=== PATIENT | female | born 1975 | race Caucasian/White ===

== ENCOUNTER → 2020-06-09 | Outpatient (CLI) | payer OTHER | LOC: NUC 07:04 | PROVIDERS: ATTEND Internal Medicine | DX: E04.2 Nontoxic multinodular goiter (principal); E21.3 Hyperparathyroidism, unspecified ==

== ENCOUNTER → 2020-07-28 | Day surgery (SDC) | payer OTHER ==
[~2020-07-28] VITALS: Ht 162.6 cm; Wt 81.6 kg
[~2020-07-28] MED LIST: ATORVASTATIN CA20 MG PO; GLYXAMBI 25 MG1 EACH PO; HYDROCODON-ACE1 EAC7 PO; LISINOPRIL10 MG PO; METFORMIN PO; NEXIUM40 MG PO; VASCEPA1 GM PO; VITAMIN D21250 MC1 PO
== END | disposition home or self-care (01) ==
LOC: OR 13:05 → NUC 07-30 12:12 → OR 07-30 12:42 → EDSTATUS 07-30 13:48 → OR 07-30 13:52 → EDSTATUS 07-30 13:54 → OR 07-30 14:18
PROVIDERS: ATTEND Surgery
DX: Z01.812 Encounter for preprocedural laboratory examination (principal); Z20.828 Contact with and (suspected) exposure to other viral communicable diseases; E21.3 Hyperparathyroidism, unspecified; I10 Essential (primary) hypertension; E11.9 Type 2 diabetes mellitus without complications; K21.9 Gastro-esophageal reflux disease without esophagitis; Z98.890 Other specified postprocedural states; Z79.899 Other long term (current) drug therapy

== ENCOUNTER 2020-07-30 06:06 | Day surgery (SDC) | payer OTHER ==
[2020-07-30] VITALS (11 sets, daily range): BP systolic 109–143; BP diastolic 64–86
[~2020-07-30] VITALS: Ht 160 cm; Wt 88.9 kg
[~2020-07-30 06:06] MED LIST changes: -HYDROCODON-ACE1 EAC7 PO
--- NOTE | 2020-07-30 07:37 | EKG ---
[facility] [place] [address] ELECTROCARDIOGRAM REPORT Name: CASPER GRADY Room #: 150-3 [facility] M.R.#: [id number] Admission: 07/30/20 Attend Phys: Chad Echavarria MD Discharge: Date of : 79 Report #: [id number] THIS REPORT FOR: cc: Nadiya Kemp Christine L DO Santiago, Patrick MD [facility] THIS REPORT FOR: //name// [facility] Test Date: 2020-07-30 Test Time: 06:40:04 Pat Name: CASPER GRADY Department: Room: 150 3 Gender: F Oxygen Therapy Teacher: TRANG : 1975 Requested By: Chad Echavarria Order Number: [id number] MD: Bridger Morejon Measurements Intervals [place] Rate: 51 P: 29 TX: 191 QRS: -9 QRSD: 98 T: 20 QT: 445 QTc: 410 Interpretive Statements Sinus rhythm J-Point elev, probable normal early repol pattern Baseline wander in lead(s) II No previous ECG available for comparison Electronically Signed On 07-30-2020 7:37:32 CDT by Bridger Morejon [email or web address] <ELECTRONICALLY SIGNED> By: Bridger Morejon MD, FACC 07/30/20 0737 Bridger Morejon MD, [facility] /EPI
--- NOTE | 2020-07-30 13:15 | H ---
[facility] [place] [address] HISTORY AND PHYSICAL Name: CASPER GRADY Room #: 150-3 [facility] M.R.#: [id number] Admission: 07/30/20 Attend Phys: Chad Echavarria MD Discharge: Date of : 79 Report #: [id number] THIS REPORT FOR: cc: Nadiya Kemp,Nadiya Godinez,Chad Wade MD ~ CC: Frieda Echavarria ADMISSION HISTORY AND PHYSICAL PATIENT OF: Dr. She Muller and Dr. Frieda Valdez CHIEF COMPLAINT: "I have a history of high calcium in my blood." HISTORY OF PRESENT ILLNESS: The patient is a 44-year-old white female, who was found on routine blood work to have an elevated calcium level in 11/2019. This was repeated in April and her calcium and parathyroid hormone assays were elevated. Primary care physician recommended an endocrine evaluation and she was seen by Dr. Frieda Valdez. She has no history of any renal lithiasis, pancreatitis, frequent bony fractures, chronic abdominal pain, nausea or vomiting. She does admit to some mental fogginess and depression, but she thought this was related to currently going through a divorce. No family history of any endocrine tumors. Though, her mother has a history of total thyroidectomy for Deep's thyroiditis. Dr. Valdez ordered a sestamibi scan, which confirmed the presence of a right parathyroid abnormal gland. Ultrasound then confirmed the presence of an oval well circumscribed hypoechoic mass posterior to the right lobe of the thyroid, highly suggestive of a parathyroid adenoma. She was then seen in surgical consultation and I recommended neck exploration and parathyroidectomy agreed to proceeding with surgery. PAST MEDICAL HISTORY: Diabetes, hypertension, gastroesophageal reflux disease, hypercholesterolemia. PAST SURGICAL HISTORY: ACL, PCL, MCL meniscus repair in 1998; hysterectomy in 2012. MEDICATIONS: Vascepa 1 gram 2 capsules with meals twice a day, metformin 1000 mg p.o. every day, Glyxambi 25/5 mg tablet 1 tablet p.o. every day, Nexium 20 mg p.o. every day, atorvastatin 20 mg p.o. every day, lisinopril 20 mg p.o. every day. ALLERGIES: No known drug allergies. [address] [address] HISTORY AND PHYSICAL Name: CASPER GRADY Room #: 150-3 [facility].#: [id number] Admission: 07/30/20 Attend Phys: Chad Echavarria MD Discharge: Date of : 79 Report #: [id number] FAMILY HISTORY: Mother with history of diabetes. Father and grandmother with history of liver carcinoma. SOCIAL HISTORY: The patient is legally and going through a divorce, does not smoke, drinks alcohol occasionally. REVIEW OF SYSTEMS: Pertinent positives as above. Full review of systems, otherwise, negative. PHYSICAL EXAMINATION: GENERAL: This is a well-developed, well-nourished white female, in no acute distress. VITAL SIGNS: Stable. She is afebrile. Height 64 inches, weight is 200 pounds, BMI of 34.4. HEENT: Sclerae are nonicteric. Mucous membranes are moist and pink. NECK: No adenopathy, no thyromegaly. No palpable neck masses. LUNGS: Clear to auscultation bilaterally. Normal excursion. CARDIOVASCULAR: Regular rate and rhythm. No murmurs, S3 or S4. Normal PMI. ABDOMEN: Soft, flat and nontender. No palpable masses, no organomegaly, no hernias. EXTREMITIES: No clubbing, cyanosis or edema. NEUROLOGIC: Intact with a clear mental status. No focal motor or sensory deficits. IMPRESSION: A 44-year-old white female with hypercalcemia, hyperparathyroidism, probable right parathyroid adenoma. I fully discussed with the patient the diagnosis, prognosis, and treatment options. She states she understands and wished to proceed with surgery. PLAN: We will perform a neck exploration with parathyroidectomy with preoperative sestamibi injection and intraoperative turbo PTH assay under general endotracheal anesthesia, 23-hour observation admission to [facility]. The procedure and its risks, benefits and possible complications including possible negative neck exploration were fully discussed with the patient. She states she understands and agrees to proposed surgery. <ELECTRONICALLY SIGNED> By: Chad Echavarria MD 07/30/20 1315 1122 1153 Chad Echavarria MD /nt
[2020-07-30] MEDS ORDERED: HYDROCODON-ACE1 EAC7 PO (13:28)
--- NOTE | 2020-07-30 16:36 | NUR ---
Admitted patient to the floor from PACU at 1425. Pt. was calm and cooperative. Patient does not complaint of pain currently. Admission completed with patient.
[2020-07-31 00:22] VITALS: BP 124/77
[2020-07-31 06:40] LABS: CREATININE 0.9 mg/dL (0.6-1.0)
[2020-07-31 07:35] VITALS: BP 120/70
--- NOTE | 2020-07-31 08:21 | NUR ---
ASSESSMENT: CM REVIEWED CHART AND SPOKE WITH PATIENT. PT IS S/P PARATHYROIDECTOMY. PT REPORTS LIVING WITH HER EX- IN A HOUSE. PT REPORTS ONE STEP TO ENTER AND NO STEPS ONCE INSIDE. PT REPORTS SHE IS FULLY INDEPENDENT WITH ADLS AND AMBULATION. CM DISCUSSED ROLE. PT REPORTS HAVING NO NEEDS FROM CM.
--- NOTE | 2020-07-31 08:46 | NUR ---
ASSESSED AT START OF SHIFT. PT A&OX4 C/O PAIN 03/26 MANAGED WITH PO HYDROCODONE. POSTOP DRESSING C/D/I. IV INTACT AND FLUIDS INFUSING. PT UP AD MELISSA TO THE BATHROOM. TUMS GIVEN FOR SORE THROAT. CALL LIGHT AT REACH.
--- NOTE | 2020-07-31 08:48 | O ---
[facility] [place] [address] OPERATIVE REPORT Name: CASPER GRADY Room #: 439-P [facility]..#: [id number] Admission: 07/30/20 Attend Phys: Chad Echavarria MD Discharge: Date of : 79 Report #: [id number] THIS REPORT FOR: cc: Nadiya Kemp,Nadiya Godinez,Chad Wade MD ~ CC: Frieda Echavarria DATE OF SERVICE: 07/30/[address] Frieda Valdez and Dr. Nadiya Kemp. PREOPERATIVE DIAGNOSES: Hypercalcemia, hyperparathyroidism, parathyroid adenoma. POSTOPERATIVE DIAGNOSES: Hypercalcemia, hyperparathyroidism, parathyroid adenoma. PROCEDURE: Neck exploration with preoperative sestamibi injection and intraoperative turbo PTH and right pole parathyroidectomy with pathological consultation for frozen section. SURGEON: Chad Echavarria M.D. ANESTHESIA: General. DESCRIPTION OF PROCEDURE: The patient underwent a preoperative sestamibi injection in the Nuclear Medicine Department. Preoperative intact PTH was drawn and was 167. The patient was then brought to the operating room and placed on the operative table in the supine position. Sequential compression devices were in place for DVT prophylaxis. There was no indication for preoperative antibiotics. The patient underwent a general endotracheal anesthesia and the neck was placed in the extended position. Using the gamma probe, an area of increased activity was noted and found on the right side of the neck and marked. The patient was then prepped and draped in a sterile fashion. A transverse neck incision was then performed using #15 scalpel blade. Hemostasis obtained using electrocautery. Dissection was carried down through the subcutaneous tissue and platysma using the electrocautery. Flaps were then developed superiorly, inferiorly, medially and laterally using the electrocautery. The anterior cervical fascia was incised vertically in the midline using the electrocautery. The right strap muscles were then dissected free from the right lobe of the thyroid using a clamp and electrocautery as well as the LigaSure. On exploration along the right side, I was able to identify a normal right upper [address] [address] OPERATIVE REPORT Name: CASPER GRADY Room #: 439-P [facility].#: [id number] Admission: 07/30/20 Attend Phys: Chad Echavarria MD Discharge: Date of : 79 Report #: [id number] parathyroid gland. A very large right lower parathyroid adenoma was identified, carefully dissected free using a clamp and electrocautery as well as the LigaSure. This was then removed and given to the pathologist, Dr. Bright, in the operating room and a frozen section was performed, which was consistent with a hypercellular parathyroid gland. This was then submitted for permanent study. This tumor weighed 3.2 grams and represented a very large parathyroid single adenoma. An intraoperative turbo PTH was then performed, which returned showing a significant drop in the parathyroid hormone from 167-21.5. This was consistent with a solitary large adenoma. Meticulous hemostasis was checked and obtained in the area using the electrocautery as well as the LigaSure and 3-0 chromic ties. The left side was not explored due to the significant size and the abnormal parathyroid gland and the drop in the parathyroid hormone level. The anterior cervical fascia was then closed using a running buried 2-0 chromic suture. The subcutaneous tissue and the platysma were then closed using a running 3-0 chromic suture. Skin was then closed using a running 4-0 subcuticular Vicryl stitch. The wound was then dressed with Mastisol, 1/2-inch Steri-Strips cut in half, Telfa, and tape. The patient was then awakened from the general anesthesia and taken to the recovery room in good condition. During the closure, skin, subcutaneous tissue, muscle and fascia were all infiltrated with 0.5% Marcaine. The patient was awake, alert and in good condition. All sponge, lap and instrument counts were correct x 2. <ELECTRONICALLY SIGNED> By: Chad Echavarria MD 07/31/20 0848 1313 1340 Chad Echavarria MD /nt
[2020-07-31 09:00] VITALS: BP 120/72
--- NOTE | 2020-07-31 13:23 | HC ---
[place] [address] CONSULTATION Name: CASPER GRADY Room #: DEP [facility] M..#: [id number] Admission: 07/30/20 Attend Phys: Chad Echavarria MD Discharge: 07/31/20 Date of : 79 Report #: [id number] THIS REPORT FOR: cc: Nadiya Kemp Christine L DO Al-Mubaslat, Ahmad MD ~ DATE OF SERVICE: 07/31/2020 ENDOCRINE CONSULTATION NOTE CONSULTING PHYSICIAN: Dr. Chad Echavarria REASON FOR CONSULTATION: Hyperparathyroidism. HISTORY OF PRESENT ILLNESS: This is a 44-year-old female patient whom I have seen 2 months ago for the issue of hyperparathyroidism. She had been noticed first to have hypercalcemia during routine workup in 11/2019, which was confirmed in 04/2020. On further investigation, her parathyroid hormone proved to be excessive at 181 with a total calcium of 11.3 and vitamin D of 16. Localization studies confirmed that she has a suspected parathyroid adenoma adjacent to the right thyroid lobe. Subsequently, the patient was elected for surgery given her young age and was admitted yesterday for that purpose. She had undergone a successful, uneventful right parathyroidectomy without complications. This morning, the patient does not appreciate numbness, tingling or muscle cramps of any significance. Also, the patient's background is significant for type 2 diabetes mellitus that is managed with metformin and Glyxambi with adequate control and reported hemoglobin A1c of 5.0%. Furthermore, she is hypertensive and is maintained with lisinopril 10 mg daily. She is hyperlipidemic and is maintained on atorvastatin 20 mg daily. REVIEW OF SYSTEMS: CONSTITUTIONAL: Noted for intermittent issues with fatigue, tiredness, but no fever, chills or body weight changes. HEENT: Negative for sore throat, sinus pain or ear drainage. PULMONARY: Negative for shortness of breath, cough or hemoptysis. CARDIAC: Negative for chest pain, palpitations, syncope or presyncope. GASTROINTESTINAL: Negative for abdominal pain, nausea, vomiting or changes in bowel movement frequency. NEUROLOGY: Negative for numbness, tingling, lightheadedness, dizziness, loss of consciousness. Otherwise, review of systems noncontributory unless mentioned in HPI. [address] [address] CONSULTATION Name: CASPER GRADY Room #: [facility]..#: [id number] Admission: 07/30/20 Attend Phys: Chad Echavarria MD Discharge: 07/31/20 Date of : 79 Report #: [id number] PAST MEDICAL HISTORY: 1. Primary hyperparathyroidism with hypercalcemia. 2. Type 2 diabetes mellitus. 3. Hypertension. 4. Hyperlipidemia. 5. Dyslipidemia. OUTPATIENT MEDICATIONS: Atorvastatin 20 mg daily, Vascepa 1 gram 2 pills twice a day, lisinopril 10 mg daily, metformin 1000 mg b.i.d., Glyxambi 25/5 mg once daily. ALLERGIES: No known drug allergies. FAMILY HISTORY: Noted for diabetes mellitus. SOCIAL HISTORY: The patient denies use of tobacco, alcohol or illicit drugs. PHYSICAL EXAMINATION: GENERAL: Pleasant female patient who is not in apparent pain or distress. VITAL SIGNS: Blood pressure is 120/72 mmHg, heart rate is 72 beats per minute, respiration 18 per minute, temperature 37.1 degrees Celsius. CONSTITUTIONAL: The patient is lying in bed, appears relatively comfortable, not in apparent distress. HEENT: Anicteric sclerae. Intact extraocular motions. NECK: Supple, without JVD or carotid bruits. A surgical dressing is noted at the base of her neck. CHEST: Noted for good air entry bilaterally with scattered rales, but no wheezes or crackles. HEART: Regular rate and rhythm without murmurs or gallops. ABDOMEN: Soft, lax. No guarding. Active bowel sounds. EXTREMITIES: Lower extremity exam is negative for ankle edema, skin breaks or ulcerations. Pedal pulses are appreciated. NEUROLOGIC: She is awake, alert and oriented to time, place and person. The remainder of her examination is nonfocal. PSYCHIATRIC: Pleasant, interactive. Normal mood and affect. Normal thought process. LABORATORY VALUES: During her hospital stay so far, the patient had a preop PTH that was 167.1 that dropped intraoperatively to 21.5, calcium this morning is at 15, creatinine 0.9, BUN 16, anion gap 8, CO2 of 26, chloride 106, potassium 4.0, sodium 140. ASSESSMENT AND PLAN: 1. Hyperthyroidism. The patient's preoperative workup was consistent with [address] [address] CONSULTATION Name: CASPER GRADY Room #: [facility] Travon#: [id number] Admission: 07/30/20 Attend Phys: Chad Echavarria MD Discharge: 07/31/20 Date of : 79 Report #: [id number] primary hyperparathyroidism with associated hypercalcemia with her localization studies pointing out to a parathyroid adenoma adjacent to the right thyroid lobe. She had undergone a successful uneventful right parathyroidectomy yesterday with an appropriate intraoperative PTH drop. She is well this morning without features of hypocalcemia. I counseled the patient at length about the potential signs and symptoms of hypocalcemia and alerted her to take calcium should that happen. I would like to follow up with her in 3-4 weeks to ensure her stability. 2. Type 2 diabetes mellitus. The patient is maintained on a combination of metformin and Glyxambi with extraocular glycemic control as per her most recent hemoglobin A1c of 5.0%, she is advised to continue with the same. 3. Hypertension. The patient is under good control with the current lisinopril regimen, she is advised to maintain the same. 4. Hyperlipidemia, dyslipidemia. She is maintained on a combination of atorvastatin and Vascepa with good tolerability and decent control, she is to continue with the same. I certainly appreciate this consultation by Dr. Echavarria. <ELECTRONICALLY SIGNED> By: Frieda Valdez MD 07/31/20 1323 1031 1236 Frieda Valdez MD /nt
--- NOTE | 2020-07-31 14:08 | NUR ---
Assumed care of pt. at 0700. Pt. is calm and cooperative. Pt. is excited to discharge and be back home. Physician visited pt and approved discharge. Discharge teaching given to pt., pt. discharged and left with all belongings and mother.
--- NOTE | 2020-07-31 16:06 | PATH ---
[facility] [address] [place] [address] PATHOLOGY RPT PROCEDURE Name: CASPER GRADY Room #: DEP [facility] M.R.#: [id number] Admission: 07/30/20 Date of : 79 Discharge: 07/31/20 Report #: [id number] Path Case #: [id number] [facility] Accession Number: [id number] . 01 Material submitted: . parathyroid gland - RIGHT PARATHYROID - FS. Modifiers: right . 01 Clinical history: . HYPERPARATHYROIDISM, HYPERCALCEMIA . 02 Frozen section diagnosis: . FROZEN SECTION DIAGNOSIS: (Dr. Chasidy Bright) . FSA1. Right parathyroid, excision: - Markedly hypercellular parathyroid gland tissue, 3.2 grams. . These findings are discussed with Dr. Larry Echavarria in OR2 at [facility] and a written report is placed in the patient's chart. (IUV:pit 07/30/2020) . FROZEN SECTION GROSS DESCRIPTION: The specimen is received fresh from the OR labeled with the patient's name, and "right parotid" consists of a 3.2 gram oval glistening tissue measuring 2.2 x 1.7 x 0.7 cm. The capsule is inked black and the specimen is bisected to show a red-hi homogenous parenchyma. A lead generation representative half is submitted for frozen section as FSA1, this is subsequently submitted for permanent sections as A1. The remainder of will be submitted for permanent sections only as A2. (IUV:pit 07/30/2020) . Frozen section performed at [facility], [address] [place], [place] [address], [place] [address]. IZV/QTP . 02 Diagnosis: Parathyroid, right parathyroid, parathyroidectomy: - Markedly hypercellular parathyroid gland compatible with a parathyroid adenoma, 3.2 grams. (IUV:mary; 07/31/2020) QMS 07/31/2020 1459 Local . 02 Electronically signed: . Chasidy Bright MD, Pathologist NPI- [id number] . 01 Gross description: . [facility] [address] [place] [address] PATHOLOGY RPT PROCEDURE Name: CASPER GRADY Room #: DEP [facility] MAmanda.#: [id number] Admission: 07/30/20 Date of : 79 Discharge: 07/31/20 Report #: [id number] Path Case #: [id number] SEE FROZEN SECTION FOR GROSS DESCRIPTION /QTP 07/31/2020 0708 Local . 02 Microscopic: . . . 02 Pathologist provided ICD-10: E21.3, E83.52 . 02 CPT . 845368, 643424 Specimen Comment: A courtesy copy of this report has been sent to [phone] Specimen Comment: [phone] Specimen Comment: Report sent to / DR RADER Performed at: [address], [place] [id number] MD Luis M Heaton MD Phone: [phone] Performed at: [address] [id number] MD Chasidy Bright MD Phone: [phone]
== END 2020-07-31 10:53 | disposition home or self-care (01) ==
LOC: OR 06:06 → TBA 06:08 → OR 08:39 → 4S 14:18 → TBA 14:18 → 4S 14:38 → OR 07-31 10:53
PROVIDERS: ATTEND Surgery
DX: E21.3 Hyperparathyroidism, unspecified (principal); D35.1 Benign neoplasm of parathyroid gland; I10 Essential (primary) hypertension; E78.5 Hyperlipidemia, unspecified; E11.9 Type 2 diabetes mellitus without complications; Z98.890 Other specified postprocedural states; Z79.899 Other long term (current) drug therapy; Z83.3 Family history of diabetes mellitus
CPT/HCPCS: 10102; 50010; 50101; 50386; 50417; 50942; 56524; 56526; 56805; 62110; 62900; 70005